=== PATIENT | female | born 1940 | race African-American/Black ===

== ENCOUNTER → 2019-11-14 11:09 | Outpatient (CLI) | payer MEDICARE, SELFPAY ==
[2019-11-14 10:23] VITALS: BMI 19.8
[2019-11-14 12:30] LABS: Absolute Lymphocyte Count 1.33 X10^3/uL (0.83-4.51); Absolute Neutrophil Count 2.3 X10^3/uL (2.0-7.7); Basophil# 0.03 X10^3/uL; Basophil% 0.7 % (0-1); Eosinophil# 0.14 X10^3/uL; Eosinophils% 3.5 % (0-5); Hematocrit 36.9 % (37-47); Hemoglobin 11.1 g/dL (12.0-15.0); Lymphocyte # 1.33 X10^3/ul (4.0); Mean Corp Hgb Conc 30.1 g/dL (32-36); Mean Corpuscular Hgb 27.1 pg (27.0-32.0); Mean Corpuscular Volume 90.2 fL (81-99); Mean Platelet Vol. 9.9 fl (6.2-12.0); Monocyte# 0.24 X10^3/uL; NRBC Flagged by Analyzer 0 % (0-5); Neutrophil # 2.28 X10^3/uL (2.7-7.7); Neutrophil % 56.6 % (47-70); Platelet Count 262 K/mm3 (150-450); RBC Distribution Width SD 49.4 fl (35.1-43.9); Red Blood Count 4.09 M/mm3 (4.2-5.4)
[2019-11-14 13:16] LABS: ALB/GLOB Ratio 0.8 RATIO (0.9-2.4); AST(SGOT) 67 U/L (15-37); Alanine Aminotransfer ALT/SGPT 123 U/L (13-56); Albumin, Serum 3.2 g/dL (3.2-5.0); Alkaline Phosphatase 226 U/L (45-117); Anion Gap 5 (5-15); BUN 11 mg/dL (7-18); BUN/Creat Ratio 7.3 RATIO (10-20); Calcium,Total 8.9 mg/dL (8.5-10.1); Chloride 111 mmol/L (98-107); Cholesterol 182 mg/dL (200); Creatinine, Serum 1.51 mg/dL (0.55-1.02); EST Glomerular Filtration Rate 35 mL/min (>60); Est Glom Filt Rate - Afr Amer 43 mL/min (>60); Globulin 3.8 g/dL (2.2-4.2); Glucose 76 mg/dL (74-106); High Density Lipoprotein 74 mg/dL; Potassium 3.8 mmol/L (3.5-5.1); Sodium Level 142 mmol/L (136-145); Thyroid Stim Hormone (TSH) 9.92 uIU/mL (0.358-3.74); Triglycerides 188 mg/dL; Very Low Density Lipoprotein 38 mg/dL (5-40)
== END ==
PROVIDERS: PCP Internal Medicine; Referring Provider Internal Medicine; Visit Provider Internal Medicine
DX: E78.5 Hyperlipidemia, unspecified (principal); E03.9 Hypothyroidism, unspecified
CPT/HCPCS: 36415; 80053; 80061; 84443; 85025

== ENCOUNTER → 2019-12-01 10:50 | Outpatient (CLI) | payer MEDICARE, SELFPAY ==
[2019-11-14 10:23] VITALS: BMI 19.8
--- NOTE | 2019-12-01 10:52 | ART_ITS ---
Reason For Study: PVD Procedure A bilateral lower extremity continuous wave Doppler with analog waveform analysis and ankle brachial indexes. Left Segmental Pressures Left brachial= 195mmHg. Left posterior tibial artery = 112mmHg. Left dorsalis pedis artery = 109mmHg. The left dorsalis pedis waveforms are monophasic. The left posterior tibial artery waveforms are monophasic. Right Segmental Pressures Right brachial= 182mmHg. Right posterior tibial artery = 89mmHg. Right dorsalis pedis artery = 97mmHg. The right dorsalis pedis waveforms are monophasic. The right posterior tibial artery waveforms are monophasic. Indices The right ankle brachial index by the dorsalis pedis is .5. The right ankle brachial index by the posterior tibial artery is .46. The left ankle brachial index by the dorsalis pedis is .56. The left ankle brachial index by the posterior tibial artery is .57. Interpretation Summary Bilateral moderate occlussive disease ith monophasic flow and FORTINO 0.5 and 0.57. Ordering Physician: Milvia Buckley Performed By: TOSIN LEON RVT
== END ==
LOC: CVS 10:52
PROVIDERS: PCP Internal Medicine; Referring Provider Internal Medicine; Visit Provider Internal Medicine
DX: I73.9 Peripheral vascular disease, unspecified (principal)
CPT/HCPCS: 93922

== ENCOUNTER → 2019-12-19 14:19 | Outpatient (CLI) | payer MEDICARE, SELFPAY ==
[2019-12-19 13:38] VITALS: BMI 22.8
[2019-12-19 16:02] LABS: Thyroid Stim Hormone (TSH) 3.08 uIU/mL (0.358-3.74)
== END ==
PROVIDERS: PCP Internal Medicine; Visit Provider Internal Medicine
DX: E03.9 Hypothyroidism, unspecified (principal)
CPT/HCPCS: 84443

== ENCOUNTER → 2020-01-17 13:05 | Outpatient (CLI) | payer MEDICARE, SELFPAY ==
[2019-12-19 16:06] VITALS: BMI 19.8
--- NOTE | 2020-01-17 13:13 | ADU_ITS ---
Reason For Study: atherosclerosis with claudication Right Velocities Left Velocities Ext. Iliac Artery, dist = 56.6 cm./sec. Ext Iliac Artery, dist = 83.7 cm./sec. Common Femoral Artery, mid = 107.0 cm./sec. Common Femoral Artery, mid = 189.1 cm./sec. Unable to demonstrate flow in the SFA. Supf. Femoral Artery, prox = 131.5 cm./sec. Profunda Femoral Artery = 55.8 cm./sec. Profunda Femoral Artery = 28.5 cm./sec. Popliteal Artery, prox. = 21.1 cm./sec. Popliteal Artery, proximal, = 23.6 cm./sec. Popliteal Artery, mid = 24.8 cm./sec. Popliteal Artery, mid = 12.6 cm./sec. Popliteal Artery, dist = 33.4 cm./sec. Popliteal Artery, distal = 19.9 cm./sec. Post. Tibial Artery, prox = 12.5 cm./sec. Post. Tibial Artery, prox = 30.9 cm./sec. Post. Tibial Artery, mid = 12.5 cm./sec. Post Tibial Artery, mid = 29.0 cm./sec. Post. Tibial Artery, dist = 13.8 cm./sec. Post Tibial Artery, dist. = 30.8 cm./sec. Peroneal Artery, prox = 19.9 cm./sec. Peroneal Artery, prox = 29.0 cm./sec. Peroneal Artery, mid = 23.6 cm./sec. Peroneal Artery, mid = 25.4 cm./sec. Peroneal Artery,dist = 23.6 cm./sec. Peroneal Artery,dist. = 19.9 cm./sec. Ant. Tibial Artery, prox = 33.4 cm./sec. Ant. Tibial Artery, distal = 16.2 cm./sec. Ant. Tibial Artery, mid = 21.1 cm./sec. Unable to demonstrate flow in the mid and distal Ant. Tibial Artery, dist = 29.7 cm./sec. SFA. Unable to demonstrate flow in the prox and mid MARIMAR. Procedure The exam was diagnostic. Exam performed in department. Interpretation Summary Bilateral femoral artery occlussions. Ordering Physician: Florentino Pérez Performed By: Eamon Saavedra RVT
--- NOTE | 2020-01-17 13:13 | ART_ITS ---
Reason For Study: atherosclerosis with claudication Procedure A bilateral lower extremity continuous wave Doppler with analog waveform analysis and ankle brachial indexes. Left Segmental Pressures Left brachial= 193mmHg. Left posterior tibial artery = 97mmHg. Left dorsalis pedis artery = 95mmHg. Left digit = 67 mmHg. The left dorsalis pedis waveforms are monophasic. The left posterior tibial artery waveforms are monophasic. Right Segmental Pressures Right brachial= 186mmHg. Right posterior tibial artery = 80mmHg. Right dorsalis pedis artery = 92mmHg. Right digit = 51 mmHg. The right dorsalis pedis waveforms are monophasic. The right posterior tibial artery waveforms are monophasic. Indices The right ankle brachial index by the dorsalis pedis is .48. The right ankle brachial index by the posterior tibial artery is .41. The right digital-brachial index is .26. The left ankle brachial index by the posterior tibial artery is .5. The left ankle brachial index by the dorsalis pedis is .49. The left digital-brachial index is .35. Interpretation Summary Bilateral monophasic flow ith FORTINO 0.48 and 0.5. Ordering Physician: Florentino Pérez Performed By: TOSIN LEON [facility]
== END ==
PROVIDERS: PCP Internal Medicine; Referring Provider Surgery Vascular Surgery; Visit Provider Surgery Vascular Surgery
DX: I70.213 Atherosclerosis of native arteries of extremities with intermittent claudication, bilateral legs (principal)
CPT/HCPCS: 93922; 93925

== ENCOUNTER → 2020-02-03 09:25 | Outpatient (CLI) | payer MEDICARE, SELFPAY ==
[2019-12-19 16:06] VITALS: BMI 19.8
== END ==
PROVIDERS: PCP Internal Medicine; Referring Provider Nurse Practitioner Family; Visit Provider Nurse Practitioner Family
DX: R05 Cough (principal)
CPT/HCPCS: 87635; C9803; U0003